=== PATIENT | male | born 1985 | race Caucasian/White ===

== ENCOUNTER 2017-04-13 16:05 | Emergency (ER) | payer OTHER ==
[2017-04-13 16:15] VITALS: BP 144/92
--- NOTE | 2017-04-13 16:36 | ED Physician Documentation ---
PD HPI UPPER EXT INJURY - Stated complaint Stated Complaint: LT HAND INJ - Chief complaint Chief Complaint: Laceration - History obtained from History obtained from: Patient - History of Present Illness Location: Left, Finger (index) Type of injury: Laceration Timing - onset: Today Timing - duration: Hours (1) Timing - details: Abrupt onset Pain level max: 5 Pain level now: 2 Improved by: Rest, Immobilization Worsened by: Moving. No: Palpating Associated symptoms: No: Weakness, Numbness, Tingling, Swelling Similar symptoms before: Has not had sx before Recently seen: Not recently seen - Additonal information Additional information: Lacerated left index finger at work while chopping vegetables. Patient is right- handed. Tetanus up-to-date Review of Systems Neurologic: denies: Focal weakness, Numbness PD PAST MEDICAL HISTORY - Past Medical History Past Medical History: Yes Neuro: Headache/migraine - Past Surgical History Past Surgical History: No - Present Medications Home Medications: Ambulatory Orders Medication Instructions Recorded Confirmed No Known Home Medications [No 04/13/17 04/13/17 Known Home Medications] - Allergies Allergies/Adverse Reactions: Allergies Allergy/AdvReac Type Severity Reaction Status Date / Time Sulfa (Sulfonamide Allergy Intermediate Hives Verified 06/04/13 12:49 Antibiotics) - Social History Does the pt smoke?: Yes Smoking Status: Current every day smoker Does the pt drink ETOH?: Yes Does the pt have substance abuse?: Yes Substance Use and Type: Marijuana - Immunizations Immunizations are current?: Yes Immunizations: TDAP current <10years PD ED PE NORMAL - Vitals Vital signs reviewed: Yes - General General: Alert and oriented X 3, No acute distress - Derm Derm: Warm and dry - Extremities Extremities: Other (L index finger avulsion 0.3cm. bone covered, superficial. NVI) - Neuro Neuro: Alert and oriented X 3 - Psych Psych: Normal mood, Normal affect Results - Vitals Vitals: Vital Signs - 24 hr 04/13/17 16:13 Temperature 36.3 C L Heart Rate 65 Respiratory 18 Rate Blood Pressure 144/92 H O2 Saturation 97 Oxygen O2 Source Room air PD MEDICAL DECISION MAKING - ED course Complexity details: considered differential, d/w patient, d/w family ED course: L index finger avulsion, distal aspect. NVI. Irrigated, cleansed. Bandaged with gelfoam. will allow to heal by secondary intention. L & I paperwork filled out. Warnings of infection and instructions on wound care given at bedside. Also counseled on how to minimize scarring. Patient counseled regarding signs and symptoms for which I believe and urgent re-evaluation would be necessary. Patient with good understanding of and agreement to plan and is comfortable going home at this time This document was made in part using voice recognition software. While efforts are made to proofread this document, sound alike and grammatical errors may occur. Departure - Departure Disposition: 01 Home, Self Care Clinical Impression: Avulsion of skin of finger Qualifiers: Encounter type: initial encounter Qualified Code(s): S61.209A - Unspecified open wound of unspecified finger without damage to nail, initial encounter Condition: Good Instructions: ED Laceration Amputation Finger Tip Open Tx Follow-Up: your,doctor in 1 week [Other] Comments: Return if you worsen. Keep the wound clean. Forms: Activity restrictions Discharge Date/Time: 04/13/17 17:04
== END 2017-04-13 17:04 | disposition home or self-care (01) ==
LOC: ED 16:05
DX: S61.211A Laceration without foreign body of left index finger without damage to nail, initial encounter (principal); W26.0XXA Contact with knife, initial encounter; Y93.G9 Activity, other involving cooking and grilling; Y99.0 Civilian activity done for income or pay; F17.200 Nicotine dependence, unspecified, uncomplicated
CPT/HCPCS: 1040M; 12001; 99283

== ENCOUNTER 2022-06-10 02:32 | Emergency (ER) | payer OTHER ==
[2022-06-10] MEDS ORDERED: KETOROLAC 30 MG/ML VIAL IVP STA (03:03)
[2022-06-10] MEDS ORDERED: SODIUM CHLORIDE 0.9% 1,000 ML IV STA (03:03)
[2022-06-10 03:24] LABS: BASOPHILS % (AUTO) 0.4 %; EOSINOPHILS % (AUTO) 0.8 %; HCT - HEMATOCRIT 44.3 % (42.0-52.0); HGB - HEMOGLOBIN 15.7 g/dL (14.0-18.0); LYMPHOCYTES # (AUTO) 0.4 10^3/uL (1.5-3.5); LYMPHOCYTES % (AUTO) 7.6 %; MEAN CORPUSCULAR HEMOGLOBIN 32.8 pg (27.0-31.0); MEAN CORPUSCULAR HGB CONC 35.4 g/dL (32.0-36.0); MEAN CORPUSCULAR VOLUME 92.7 fL (80.0-94.0); MEAN PLATELET VOLUME 10.6 fL (7.4-11.4); MONOCYTES # (AUTO) 0.2 10^3/uL (0.0-1.0); MONOCYTES % (AUTO) 3.1 %; NEUTROPHILS # (AUTO) 4.3 10^3/uL (1.5-6.6); NEUTROPHILS % (AUTO) 87.9 %; PLT - PLATELET COUNT 122 10^3/uL (130-450); RED BLOOD COUNT 4.78 10^6/uL (4.70-6.10); RED CELL DISTRIBUTION WIDTH 11.7 % (12.0-15.0); WHITE BLOOD COUNT 4.9 x10^3/uL (4.8-10.8)
[2022-06-10 03:34] LABS: ALBUMIN 4.7 g/dL (3.2-5.5); ALBUMIN/GLOBULIN RATIO 1.6 (1.0-2.2); CALCIUM 9.1 mg/dL (8.5-10.3); CREATININE 1.2 mg/dL (0.6-1.2); POTASSIUM 3.7 mmol/L (3.5-5.0); TOTAL PROTEIN 7.7 g/dL (6.7-8.2)
[2022-06-10] MEDS ORDERED: oxyCODONE 5 MG TABLET PO STA (03:46)
--- NOTE | 2022-06-10 03:57 | ED Physician Documentation ---
History of Present Illness - Stated complaint Stated Complaint: teeth px, rigors - Chief complaint Chief Complaint: Heent - History obtained from History obtained from: Patient - Additonal information Additional information: Patient is a 36-year-old male with no significant past medical history present ing for evaluation of feeling feverish and Shaky since waking up an hour ago. He additionally has been having left lower teeth pain for years and is scheduled for dental extraction from Dr. Diamond on June 15. The pain has worsened over the last few days and he was seen at the dental office and given hydrocodone. He last took a dose at 10 or 11 PM. Patient denies swelling To the area, abnorma l drainage, erythema. He denies sore throat, difficulty swallowing, cough, chest pain, difficulty breathing, abdominal pain, diarrhea, dysuria.He has not taken a COVID test.He denies known sick contacts.He is not currently on any antibiotics for his teeth. Review of Systems Constitutional: reports: Fever Nose: denies: Congestion Throat: reports: Dental pain / toothache. denies: Sore throat Cardiac: denies: Chest pain / pressure Respiratory: denies: Dyspnea, Cough GI: denies: Abdominal Pain, Diarrhea : denies: Dysuria, Hematuria Musculoskeletal: denies: Neck pain, Back pain Neurologic: denies: Headache PD PAST MEDICAL HISTORY - Past Medical History Past Medical History: No Cardiovascular: None Respiratory: None Neuro: None Endocrine/Autoimmune: None GI: None : None HEENT: None Psych: None Musculoskeletal: None Derm: None - Past Surgical History Past Surgical History: Yes General: Other - Present Medications Home Medications: Ambulatory Orders Medication Instructions Recorded Confirmed Oxycodone HCl/Acetaminophen 1 each PO Q6H PRN #10 tablet 06/10/22 [Percocet 5-325 mg Tablet] clindamycin HCL [Cleocin HCl] 300 mg PO QID #28 cap 06/10/22 - Allergies Allergies/Adverse Reactions: Allergies Allergy/AdvReac Type Severity Reaction Status Date / Time Sulfa (Sulfonamide Allergy Intermediate Hives Verified 06/10/22 02:53 Antibiotics) amoxicillin AdvReac Unknown Verified 06/10/22 02:53 - Social History Does the pt smoke?: Yes Smoking Status: Current every day smoker Does the pt drink ETOH?: Yes Does the pt have substance abuse?: Yes - Immunizations Immunizations are current?: Yes Immunizations: TDAP current <10years - POLST Patient has POLST: No PD ED PE NORMAL - General General: Alert and oriented X 3, No acute distress, Well developed/nourished - HEENT HEENT: Atraumatic, Moist mucous membranes, Pharynx benign, Other (No oral swelling or abscess, no facial swelling or erythema, no tenderness over facial bones). No: Dentition benign (Poor dentition, cracked left lower molar, no abscess, no oral swelling, normal speech, No trismus) - Neck Neck: Supple, no meningeal sign, No bony TTP - Cardiac Cardiac: No murmur, Strong equal pulses, Other (Tachycardic, regular rhythm) - Respiratory Respiratory: No respiratory distress, Clear bilaterally - Abdomen Abdomen: Normal bowel sounds, Soft, Non tender, Non distended - Back Back: No CVA TTP - Derm Derm: Warm and dry - Extremities Extremities: No edema - Neuro Neuro: Normal speech PD ED PE EXPANDED - HEENT HEENT Visual: 1 - tenderness (No palpable abscess, no swelling) Results - Vitals Vitals: Vital Signs - 24 hr 06/10/22 06/10/22 06/10/22 02:48 03:17 03:51 Temperature 38.8 C H Heart Rate 102 H 106 H 108 H Respiratory 17 17 Rate Blood Pressure 134/87 H 145/101 H 145/81 H O2 Saturation 100 97 97 06/10/22 06/10/22 04:39 04:41 Temperature 37.6 C Heart Rate 107 H Respiratory 17 Rate Blood Pressure 140/89 H O2 Saturation 96 Oxygen O2 Source Room air - Labs Labs: Laboratory Tests 06/10/22 06/10/22 06/10/22 03:00 03:15 03:15 WBC 4.9 RBC 4.78 Hgb 15.7 Hct 44.3 MCV 92.7 MCH 32.8 H MCHC 35.4 RDW 11.7 L Plt Count 122 L MPV 10.6 Neut # (Auto) 4.3 Lymph # (Auto) 0.4 L Marathon # (Auto) 0.2 Eos # (Auto) 0.0 Baso # (Auto) 0.0 Absolute Nucleated RBC 0.00 Nucleated RBC % 0.0 Sodium 139 Potassium 3.7 Chloride 102 Carbon Dioxide 30 Anion Gap 7.0 BUN 19 Creatinine 1.2 Estimated GFR (MDRD) 69 L Glucose 112 H Lactic Acid Calcium 9.1 Total Bilirubin 2.0 H AST 27 ALT 32 Alkaline Phosphatase 49 Total Protein 7.7 Albumin 4.7 Globulin 3.0 Albumin/Globulin Ratio 1.6 Lipase 43 Nasal Adenovirus (PCR) NOT DETECTED Nasal B. parapertussis DNA (PCR) NOT DETECTED Nasal Coronavir 229E PCR NOT DETECTED Nasal Coronavir HKU1 PCR NOT DETECTED Nasal Coronavir NL63 PCR NOT DETECTED Nasal Coronavir OC43 PCR NOT DETECTED Nasal Enterovir/Rhinovir PCR NOT DETECTED Nasal Influenza B PCR NOT DETECTED Nasal Influenza A PCR NOT DETECTED Nasal Parainfluen 1 PCR NOT DETECTED Nasal Parainfluen 2 PCR NOT DETECTED Nasal Parainfluen 3 PCR NOT DETECTED Nasal Parainfluen 4 PCR NOT DETECTED Nasal RSV (PCR) NOT DETECTED Nasal B.pertussis DNA PCR NOT DETECTED Nasal C.pneumoniae (PCR) NOT DETECTED Sony Human Metapneumo PCR NOT DETECTED Nasal M.pneumoniae (PCR) NOT DETECTED Nasal SARS-CoV-2 (PCR) DETECTED A 06/10/22 03:15 WBC RBC Hgb Hct MCV MCH MCHC RDW Plt Count MPV Neut # (Auto) Lymph # (Auto) Marathon # (Auto) Eos # (Auto) Baso # (Auto) Absolute Nucleated RBC Nucleated RBC % Sodium Potassium Chloride Carbon Dioxide Anion Gap BUN Creatinine Estimated GFR (MDRD) Glucose Lactic Acid 1.2 Calcium Total Bilirubin AST ALT Alkaline Phosphatase Total Protein Albumin Globulin Albumin/Globulin Ratio Lipase Nasal Adenovirus (PCR) Nasal B. parapertussis DNA (PCR) Nasal Coronavir 229E PCR Nasal Coronavir HKU1 PCR Nasal Coronavir NL63 PCR Nasal Coronavir OC43 PCR Nasal Enterovir/Rhinovir PCR Nasal Influenza B PCR Nasal Influenza A PCR Nasal Parainfluen 1 PCR Nasal Parainfluen 2 PCR Nasal Parainfluen 3 PCR Nasal Parainfluen 4 PCR Nasal RSV (PCR) Nasal B.pertussis DNA PCR Nasal C.pneumoniae (PCR) Sony Human Metapneumo PCR Nasal M.pneumoniae (PCR) Nasal SARS-CoV-2 (PCR) PD MEDICAL DECISION MAKING - ED course Complexity details: reviewed results, re-evaluated patient, d/w patient ED course: Patient with dental painAlong with fever. No signs of facial swelling or oral abscess. Voice is normal and respiratory effort is unlabored. He does have a fever and is tachycardic. Denies other symptoms and so septic work-up initiated. Patient was found to be positive for COVID. He was informed of these results. He will need to reschedule his dental Appointment. Due to increased dental pain will start on antibiotics. Patient advised on concerning symptoms to return for. On lab work noted to have elevated bilirubin level. No abdominal symptoms and abdominal exam remained benign. Patient aware of need for follow-up to recheck bilirubin. 0340 - Reviewed labs with patient including elevated bilirubin level. Patient has not been told of abnormal bilirubin levels in the past. Patient again d enies abdominal complaints. On repeat abdominal exam he continues to have no tenderness on deep palpation particularly in the right upper quadrant. Departure - Departure Disposition: 01 Home, Self Care Clinical Impression: COVID-19, Dental infection, Elevated bilirubin Condition: Stable Instructions: ED Tooth Pain Prescriptions: clindamycin HCL [Cleocin HCl] 300 mg PO QID #28 cap Oxycodone HCl/Acetaminophen [Percocet 5-325 mg Tablet] 1 each PO Q6H PRN #10 tablet PRN Reason: pain Comments: You were evaluated for a fever and found to have COVID-19. Please follow quarantine guidelines as laid out by the CDC. You additionally may have a dental infection causing worsening dental pain. I started you on an antibiotic. You should also inform your dentist that you will need to reschedule your p rocedure given that you tested positive for COVID-19. I have sent your prescriptions to [facility] in [place]. Please continue with acetaminophen or ibuprofen as needed for fever or pain. I will send a small amount of pain medication as well. I am prescribing a short course of narcotic pain medication for you. These are potentially dangerous and addictive medications that should be used carefully. These medications may constipate you. Take an [id number]-[id number] stool softener (docusate) twice daily with plenty of water while taking these medications. If you go 24 hours without a bowel movement, take ykda-xoy-whalewg miralax, per package instructions. Do not drink or drive while taking these medications. If you received narcotic or sedating medications while in the emergency department, do not drive for 24 hours. Store this medication in a safe, secure place and out of reach of children. It is a violation of federal law to give or sell this medication to another person or to use in a manner other than prescribed. The ED will not refill narcotic prescriptions, including prescriptions lost or stolen. To dispose of unwanted medications: 1. [facility] [address] [facility] [facility] [place] has a medication drop box. They accept prescription medications (in pill form) Tuesday through Tuesday 9:00 a.m. to 5:00 p.m. 2. [facility] [employer] accepts prescription medications (in pill form only) for disposal year round. Call for more information. 3. Contact the [facility] for the next [facility] sponsored prescription drug collection event. , [phone], or [phone]; Note that many narcotic pain relievers also contain Tylenol/acetaminophen. Please ensure that your total dose of acetaminophen from all sources does not exceed 3 g (3000 mg) per day. Your bilirubin level was also noticed to be elevated today. Your other liver markers were normal. Please follow-up with your primary care doctor to have this rechecked. Please return to the emergency department if you develop any abdominal pain.
[2022-06-10 04:03] LABS: CORONAVIRUS 229E-RESP PCR NOT DETECTED; CORONAVIRUS HKU1-RESP PCR NOT DETECTED; CORONAVIRUS NL63-RESP PCR NOT DETECTED; CORONAVIRUS OC43-RESP PCR NOT DETECTED
[2022-06-10 04:07] LABS: B. PARAPERTUSSIS- RESP PCR PAN NOT DETECTED; B. PERTUSSIS- RESP PCR PANEL NOT DETECTED; C. PNEUMONIAE- RESP PCR PANEL NOT DETECTED; HUMAN METAPNEUMOVIRUS NOT DETECTED; INFLUENZA A- RESP PCR PANEL NOT DETECTED; INFLUENZA B - RESP PCR PANEL NOT DETECTED; M. PNEUMONIAE- RESP PCR PANEL NOT DETECTED; PARAINFLUENZA VIRUS 1 NOT DETECTED; PARAINFLUENZA VIRUS 2 NOT DETECTED; PARAINFLUENZA VIRUS 3 NOT DETECTED; PARAINFLUENZA VIRUS 4 NOT DETECTED; RHINOVIRUS/ENTEROVIRUS NOT DETECTED; RSV- RESP PCR PANEL NOT DETECTED; SARS-CoV-2 -RESP PCR PANEL DETECTED
[2022-06-10 04:40] VITALS: BP 140/89
[2022-06-10] MEDS ORDERED: CLINDAMYCIN 150 MG CAPSULE PO STA (04:52)
--- NOTE | 2022-06-10 08:32 | XRAY Report ---
PROCEDURE: Chest 1 View X-Ray INDICATIONS: fever TECHNIQUE: One view of the chest was acquired. COMPARISON: None FINDINGS: Surgical changes and devices: None. Lungs and pleura: No pleural effusions or pneumothorax. Lungs are clear. Mediastinum: Mediastinal contours appear normal. Heart size is normal. Bones and chest wall: No suspicious bony lesions. Overlying soft tissues appear unremarkable. IMPRESSION: No acute cardiopulmonary disease. Reviewed by: Johana Velasquez MD on 06/10/2022 8:31 AM PDT Approved by: Johana Velasquez MD on 06/10/2022 8:31 AM PDT Station ID: [id number]
--- NOTE | 2022-06-10 14:08 | ED Physician Documentation ---
ED Addendum - Addendum Addendum: 06/10/22 14:07 [facility] he has an active and open hydrocodone prescription that he filled yesterday. Given this I recommended to them that they not fill the oxycodone and he could just take the hydrocodone.
--- NOTE | 2022-06-11 17:29 | ED Physician Documentation ---
ED Addendum - Addendum Addendum: 06/11/22 17:29 Cultures reviewed, 1 out of 2 cultures positive for coag negative staph. This is vastly most likely to be an contaminant especially given the alternative diagnosis of COVID.
== END 2022-06-10 05:03 | disposition home or self-care (01) ==
LOC: ED 02:32
DX: U07.1 COVID-19 (principal); K04.7 Periapical abscess without sinus; F17.200 Nicotine dependence, unspecified, uncomplicated
CPT/HCPCS: 36415; 71045; 80053; 83605; 83690; 85025; 87040; 87150; 87181; 87633; 96361; 96374; 99283; 99284; A9270

== ENCOUNTER 2023-02-02 11:01 | Emergency (ER) | payer SELFPAY ==
[2023-02-02 11:18] VITALS: BP 136/86
[2023-02-02] MEDS ORDERED: lidocaine 1% 20 ML MDV SUBQ ONE (11:48)
[2023-02-02] MEDS ORDERED: BACITRACIN ZINC OINT 1 PACKET TOP STA (11:48)
[2023-02-02] MEDS ORDERED: TETANUS/DIPHTHERIA/PERTUSSIS 0.5 ML SYRINGE IM ONE (11:49)
--- NOTE | 2023-02-02 11:51 | ED Physician Documentation ---
History of Present Illness - Stated complaint Stated Complaint: LT HAND INJURY - Chief complaint Chief Complaint: Laceration - Additonal information Additional information: 37-year-old male presents emergency department for evaluation of acute left index finger laceration sustained when chopping lemon grass at a local [place]. He is right-hand dominant. Reports last tetanus in 1991. Review of Systems Skin: reports: Laceration (s) PD PAST MEDICAL HISTORY - Past Medical History Cardiovascular: None Respiratory: None Neuro: None Endocrine/Autoimmune: None GI: None : None HEENT: None Psych: None Musculoskeletal: None Derm: None - Past Surgical History Past Surgical History: Yes General: Other - Present Medications Home Medications: Ambulatory Orders Medication Instructions Recorded Confirmed No Known Home Medications 02/02/23 02/02/23 - Allergies Allergies/Adverse Reactions: Allergies Allergy/AdvReac Type Severity Reaction Status Date / Time Sulfa (Sulfonamide Allergy Intermediate Hives Verified 02/02/23 11:13 Antibiotics) amoxicillin AdvReac Unknown Verified 02/02/23 11:13 - Social History Does the pt smoke?: Yes Smoking Status: Current every day smoker Does the pt drink ETOH?: Yes Does the pt have substance abuse?: Yes - Immunizations Immunizations are current?: Yes Immunizations: TDAP current <10years - POLST Patient has POLST: No PD ED PE EXPANDED - Extremities Extremities: Left finger(s) (Distal left index finger tip laceration that extends from the radial side of the nail down to the fat pad. Neurovascularly intact. Flexion extension preserved at DIP joint.) Results - Vitals Vitals: Vital Signs - 24 hr 02/02/23 11:14 Temperature 36.4 C L Heart Rate 58 L Respiratory 16 Rate Blood Pressure 136/86 H O2 Saturation 99 Oxygen O2 Source Room air Procedures - Laceration (location) Left index finger Length in cm: 2.5 Wound type: Curved, Into muscle, Clean Neurovascular status: Sensory intact, Motor intact, Vascular intact Tendon involvement: Tendon intact Anesthesia: Lidocaine 1% Wound preparation: Chlorhexadine, Irrigated copiously NS Skin layer closure: Nylon, Interrupted, Size #-0 - enter number (4), Sutures - enter # (5) Other: Patient tolerated well, No complications, Neurovascular intact, Dressing applied, Tetanus booster given PD Medical Decision Making - ED course Complexity details: re-evaluated patient, d/w patient ED course: 37-year-old male presents emergency department for evaluation of a left index finger laceration sustained when cutting lemon grass at work. This is a work- related injury. [id number]. Tetanus was updated today. The wound did extend to the finger nail but no sutures were placed through it. 5 sutures were placed in total. Given the patient's current schedule and plan to time off he should not miss any work. Routine wound care and emergent return precautions [id number] was completed at the bedside Departure - Departure Disposition: 01 Home, Self Care Clinical Impression: Laceration of left index finger Qualifiers: Encounter type: initial encounter Damage to nail status: with damage Foreign body presence: without foreign body Qualified Code(s): S61.311A - Laceration without foreign body of left index finger with damage to nail, initial encounter Condition: Stable Record reviewed to determine appropriate education?: Yes Instructions: ED Laceration Hand Comments: Your suture(s) (5 in total) should be removed in 10 days. In 24 hours you may remove the dressing wash gently with warm soap and water, apply any antibiotic ointment and a simple bandage. Your tetanus is up-to-date as of today and should be good for the next 7 to 10 years. Please attempt to keep your wound clean and dry. Do not submerge it in dirty dishwater or bath water. Return to the emergency department if you have any concerns of infection such as redness, fevers milky drainage increased pain.
== END 2023-02-02 12:23 | disposition home or self-care (01) ==
LOC: ED 11:01
DX: S61.311A Laceration without foreign body of left index finger with damage to nail, initial encounter (principal); F17.200 Nicotine dependence, unspecified, uncomplicated; W26.0XXA Contact with knife, initial encounter; Y93.H2 Activity, gardening and landscaping; Y99.0 Civilian activity done for income or pay
CPT/HCPCS: 1040M; 12001; 90471; 90715; 99283; A9270